=== PATIENT | female | born 1980 | race American Indian/Alaskan Native ===

== ENCOUNTER 2017-01-15 09:57 | Outpatient (CLI) | payer OTHER ==
--- NOTE | 2017-01-15 10:55 | Ultrasound Report ---
Pelvic ultrasound: Menorrhagia. Transabdominal and endovaginal imaging demonstrates a retroverted uterus measuring 4.7 x 5.6 x 8 cm. The myometrium is echogenically unremarkable. The endometrium is well visualized and has a width of 6 mm. There is a focal homogeneous echodensity in the superior endometrium measuring approximately 6 x 12 mm. The right ovary measures 3.8 and the left 4.0 cm in maximum dimension. Both ovaries contain numerous follicles but otherwise unremarkable. Impression: Findings consistent with endometrial polyp.
== END 2017-01-15 09:58 | disposition home or self-care (01) ==
LOC: SPVWC 09:57
PROVIDERS: ATTEND Family Medicine
DX: N92.0 Excessive and frequent menstruation with regular cycle (principal); L03.90 Cellulitis, unspecified; R21 Rash and other nonspecific skin eruption
CPT/HCPCS: 76830; 76856

== ENCOUNTER 2020-05-17 10:20 | Outpatient (CLI) | payer OTHER ==
--- NOTE | 2020-05-20 09:12 | Mammography Report ---
DIGITAL SCREENING MAMMOGRAM WITH CAD, 05/17/2020 CLINICAL INFORMATION / INDICATION: Routine screening mammography. TECHNIQUE: Digital bilateral 2D mammography was obtained in the craniocaudal and mediolateral obliqu e projections. This examination was interpreted with the benefit of Computer-Aided Detection analysis . COMPARISON: 02/10/2018 FINDINGS: Breast Density: The breasts are heterogeneously dense, which may obscure small masses. No dominant mass, suspicious calcifications, or architectural distortion in either breast. IMPRESSION: No mammographic evidence of malignancy. Follow up recommendation: Routine yearly BI-RADS Category 1: Negative. A "normal" or negative report should not discourage follow up or biopsy of a clinically significant f inding. A written summary of these findings will be mailed to the patient. The patient will be entered into a mammography reporting system which will generate a reminder letter for the patient's next appointmen t at the appropriate interval. The [employer] recommends yearly mammograms starting at age 40 and continuing as l carmen as a woman is in good health. Breast MRI is recommended for women with an approximate 20-25% or greater lifetime risk of breast cancer, including women with a strong family history of breast or ova yoshi cancer or who have been treated for Hodgkin's disease. Signer Name: Krystian Emerson MD Signed: 05/20/2020 9:07 AM Workstation Name: [id number]
== END 2020-05-17 10:21 | disposition home or self-care (01) ==
LOC: SPVWC 10:20
PROVIDERS: ATTEND Family Medicine
DX: Z12.31 Encounter for screening mammogram for malignant neoplasm of breast (principal)
CPT/HCPCS: 77067

== ENCOUNTER 2021-05-27 16:06 | Outpatient (CLI) | payer OTHER ==
--- NOTE | 2021-05-28 15:13 | Mammography Report ---
DIGITAL SCREENING MAMMOGRAM WITH CAD, 05/27/2021 CLINICAL INFORMATION / INDICATION: Routine screening TECHNIQUE: Digital bilateral 2D mammography was obtained in the craniocaudal and mediolateral obliqu e projections. This examination was interpreted with the benefit of Computer-Aided Detection analysis . COMPARISON: 05/17/2020 FINDINGS: Breast Density: The breasts are heterogeneously dense, which may obscure small masses. No dominant mass, suspicious calcifications, or architectural distortion in either breast. IMPRESSION: No mammographic evidence of malignancy. Follow up recommendation: Routine yearly BI-RADS Category 1: NEGATIVE A "normal" or negative report should not discourage follow up or biopsy of a clinically significant f inding. A written summary of these findings will be mailed to the patient. The patient will be entered into a mammography reporting system which will generate a reminder letter for the patient's next appointmen t at the appropriate interval. The [employer] recommends yearly mammograms starting at age 40 and continuing as l carmen as a woman is in good health. Breast MRI is recommended for women with an approximate 20-25% or greater lifetime risk of breast cancer, including women with a strong family history of breast or ova yoshi cancer or who have been treated for Hodgkin's disease. Signer Name: Donato Parrish MD Signed: 05/28/2021 3:08 PM Workstation Name: [id number]
== END 2021-05-27 16:07 | disposition home or self-care (01) ==
LOC: SPVWC 16:06
PROVIDERS: ATTEND Family Medicine
DX: Z12.31 Encounter for screening mammogram for malignant neoplasm of breast (principal)
CPT/HCPCS: 77067